=== PATIENT | male | born 1935 | race Caucasian/White ===

== ENCOUNTER 2020-01-09 07:26 | Outpatient (CLI) | payer MEDICARE, SELFPAY ==
--- NOTE | 2020-01-09 08:43 | ECG_ITS ---
[facility] Test Date: 2020-01-09 Pat Name: Duane Guzman Department: Room: Gender: Male Cut Out Marker: : 1935 Requested By: Abiodun Acevedo Order Number: [id number] Sorensen MD: Bhargavi Clayton M.D. Interpretive Statements NAME OF STUDY: LEXISCAN SESTAMIBI STRESS TEST INDICATION: Chest Pain PROCEDURE: At the baseline, the blood pressure was 145/102 mmHg with a heart rate of 70 bpm. The electrocardiogram showed possibly sinus rhythm. Right axis deviation. right bundle branch block. Baseline artifact. The Lexiscan was infused over a period of 20 seconds. A total of 0.4 milligrams of Lexiscan was infused. The stress phase was continued for a total of 5 minutes. Heart rate at the end of the stress phase was 88 bpm with a blood pressure of 130/81 mmHg. The EKG at the peak infusion revealed sinus rhythm with no significant ST-T wave changes. Sestamibi was injected 20 seconds after the Lexiscan infusion. Blood pressure at the end of the recovery phase was 130/74 mmHg with a heart rate of 87 beats per minute. CONCLUSION: 1. No significant EKG changes with the LexiScan infusion. 2. No LexiScan induced chest pain or cardiac arrhythmia. 3. Normal blood pressure and heart rate response. 4. Sestamibi/sestamibi perfusion scan pending; see separate report. Electronically Signed On 01-10-2020 16:41:43 CDT by Bhargavi Clayton M.D. [id number]
--- NOTE | 2020-01-09 08:43 | NMCV_ITS ---
NM nohemi perf SPECT r/s* [id number] Duane Guzman Age: 84 Gender: M : 1935 Exam Date: 01/09/2020 08:51 Ordering Phys: Abiodun Acevedo PA-C XX Technologist: BALWINDER Carr Exam Location: [facility] Indications: SOB ABNORMAL EKG STRESS TEST Please see separate stress test report in [facility] for full findings IMAGE PROTOCOL Rest/Stress 1 Lexiscan Day Radiopharmaceutical Dose (mCi) Administration Site Administered by Rest: Tc-99m 11.0 IV BALWINDER Carr Sestamibi Stress:Tc-99m 32.3 IV BALWINDER De Luna Sestamibi Rest: 09-Jan-2020 60 Discovery 630 Stress: 09-Jan-2020 30 Discovery 630 0.4mg Lexiscan. Images obtained in supine and prone position. SPECT RESULTS Technical Quality: Excellent Raw Data Analysis: Normal Image Corrections: Patient motion artifact - motion correction applied to prone Summed Stress Score: 0 Summed Rest Score: 0 Summed Difference Score: 0 PERFUSION FINDINGS SPECT images demonstrate homogeneous tracer distribution throughout the myocardium. FUNCTIONAL RESULTS (calculated via Gated SPECT) Stress Image LV EF (%): 74 Stress EDV (mL):74 TID: 1.09 Stress ESV (mL):19 FUNCTIONAL FINDINGS: The left ventricle is normal in size. Transient Ischemia Dilatation of 1.1. There is normal left ventricular systolic function. The left ventricular ejection fraction is normal with a value of 74%. There is normal left ventricular wall thickening. Normal end-diastolic and end-systolic volumes. IMPRESSIONS 1. Myocardial perfusion imaging is normal. 2. Overall left ventricular systolic function is normal without regional wall motion abnormalities. 3. The left ventricular ejection fraction is normal with a value of 74%. 4. This study suggests a low likelihood of angiographically significant coronary artery disease. Bhargavi Clayton MD (Electronically Signed) Final Date: 09 January 2020 17:52 S
[2020-01-09 08:55] VITALS: BMI 23.0
[2020-01-09] MEDS: regadenoson 0.4 Mg/5 ml Syringe IVP (09:37)
[2020-01-09 09:39] VITALS: BP 127/85; PULSE 99
== END 2020-01-09 07:27 | disposition home or self-care (01) ==
LOC: RAD 07:31
PROVIDERS: Visit Provider Physician Assistant Medical
DX: R06.02 Shortness of breath (principal); R94.31 Abnormal electrocardiogram [ECG] [EKG]
CPT/HCPCS: 78452; 93017; A9500; J2785